=== PATIENT | male | born 1970 | race Two or more races ===

== ENCOUNTER 2016-06-07 19:11 | Emergency (ER) | payer SELFPAY ==
[2016-06-07 18:37] LABS: URINE SOURCE CLEAN CATCH
[2016-06-07 19:08] LABS: URINE APPEARANCE CLOUDY; URINE BILIRUBIN NEG (NEG); URINE BLOOD 1+ (NEG); URINE COLOR YELLOW; URINE GLUCOSE NEG (NEG); URINE KETONE NEG (NEG); URINE LEUKOCYTE ESTERASE 2+ (NEG); URINE NITRATE NEG (NEG); URINE PH 7.5 (5-8); URINE PROTEIN NEG (NEG); URINE SPECIFIC GRAVITY 1.021 (1.003-1.035)
[2016-06-07 19:11] LABS: CULTURE INDICATED? YES; U HYALINE CASTS AUWI 0-2 /[LPF]; URINE BACTERIA AUWI NEG (NEGATIVE); URINE SQUAMOUS EPITHELIAL CELL NONE SEEN /[HPF]; UWBCS1 AUWI INNUM (0-5)
[2016-06-11 00:10] LABS: CHLAMYDIA TRACH Not Detected (Not Detected); N GONOR Detected (Not Detected)
== END 2016-06-07 19:45 | disposition home or self-care (01) ==
LOC: CFTX 19:11
PROVIDERS: Nurse Practitioner
DX: N34.2 Other urethritis (principal)
CPT/HCPCS: 81003; 87086; 87491; 87591; 96372; 99283; J0696